=== PATIENT | male | born 1950 | race Caucasian/White ===

== ENCOUNTER → 2017-05-24 | Outpatient (CLI) | payer OTHER | LOC: FIMAGING 10:09 | PROVIDERS: ATTEND Internal Medicine | DX: Z13.6 Encounter for screening for cardiovascular disorders (principal) ==

== ENCOUNTER → 2017-07-20 | Outpatient (CLI) | payer OTHER, BC | LOC: BHFA 08:30 | PROVIDERS: ATTEND Internal Medicine Cardiovascular Disease | DX: I25.10 Atherosclerotic heart disease of native coronary artery without angina pectoris (principal) | CPT/HCPCS: 78452; 93017; A9500 ==

== ENCOUNTER 2017-07-21 07:34 | Inpatient (IN) | payer OTHER, BC ==
[2017-07-21] MEDS ORDERED: diphenhydrAMINE 25 MG CAP PO ONE (07:40)
[2017-07-21] MEDS ORDERED: FAMOTIDINE 20 MG TAB PO ONE (07:40)
[2017-07-21] MEDS ORDERED: NS 1,000 ML IV ONE (07:40)
[2017-07-21] MEDS ORDERED: DIAZEPAM 5 MG TAB PO ONE (07:40)
[2017-07-21] MEDS ORDERED: ASPIRIN EC 325 MG TAB PO ONE (07:40)
--- NOTE | 2017-07-21 07:58 | CPEKG ---
Heart Rate: 57 RR Interval: 1053 P-R Interval: 164 QRSD Interval: 88 QT Interval: 424 QTC Interval: 413 P [place]: 69 QRS [place]: -9 T Wave [place]: 37 EKG Severity - ABNORMAL ECG - EKG Impression: SINUS RHYTHM EKG Impression: PROBABLE POSTERIOR INFARCT Electronically Signed By: Lei Herrera 21-Jul-2017 16:07:37
[2017-07-21 08:13] LABS: PLATELET COUNT 183 10^3/uL (150-400)
[2017-07-21 08:24] LABS: INR 0.94 (0.83-1.16); PROTIME(PATIENT) 12.8 SEC (12.0-15.0)
[2017-07-21] MEDS ORDERED: LIDOCAINE 1% 300 MG/30 ML SDV ONE (09:13)
[2017-07-21] MEDS ORDERED: HEPARIN 10,000 UNIT/10 ML MDV ONE (09:13)
[2017-07-21] MEDS ORDERED: fentaNYL 100 MCG/2 ML INJ ONE ×2 (09:13→09:51)
[2017-07-21] MEDS ORDERED: VERAPAMIL 5 MG/2 ML VIAL ONE (09:13)
[2017-07-21] MEDS ORDERED: MIDAZOLAM 2 MG/2 ML VIAL ONE (09:13)
[2017-07-21] MEDS ORDERED: IOPAMIDOL (ISOVUE-370) 150 ML BTL IV ONE (09:14)
--- NOTE | 2017-07-21 09:30 | PDGENHP ---
History & Physical Chief Complaint: CAD chest pain and abnormal History of Present Illness: 67 year old with CAD and abnormal stress test with CCS Class III symptoms of angina...stress test is intermeidate risk. 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 allens test on right is normal with adequate size of radial artery and right radial approach is planned. Cardiorespiratory Assessment: Pt with angina and shortness of breath less SV exercise now with abnormal nuclear stress and known CAD... Needs cath risk and benefit carefully reviewed. Main risk is stroke heart attack...
--- NOTE | 2017-07-21 09:32 | PDPROPOC ---
Sedation Plan of Care Sedation Plan of Care: vital signs stable, mental status noted, patient educated of risks, benefits, alternatives, patient can tolerate sedation ASA Classification: ASA 3 Planned drugs: fentanyl, midazolam Mallampati Score: Class 3 Mallampati Reference Image: Patient passed 3-3-2 rule?: Yes
[2017-07-21] MEDS ORDERED: ATROPINE SULFATE 1 MG/10 ML SYR ONE (10:41)
--- NOTE | 2017-07-21 11:52 | CPIP ---
[f rep st] INVASIVE CARDIAC PROCEDURE DATE OF PROCEDURE: 07/21/2017 PROCEDURE PERFORMED: 1. Selective coronary geography. 2. Left heart catheterization. 3. Left ventriculogram. 4. Initial right radial approach was unsuccessful secondary to tortuosity of the radial artery on th e right side, so ultimately the procedure was performed with a 5-Bhutanese sheath from a right femoral a rtery approach. INDICATIONS/APPROPRIATE USE CRITERIA: The patient has an intermediate risk stress test with abnormal ST segments with exercise, as well as a perfusion deficit involving the anterior lateral wall, compr ising approximately 8% of the total myocardium. The patient has CCS class III symptoms of angina wit h chest discomfort with minimal exertion. PROCEDURE IN DETAIL: After informed consent was obtained and the n.p.o. status was confirmed, the re gion of the right wrist was cleaned, prepped, and draped in sterile fashion. A modified plethysmogra phy trace-assisted Erick test was performed, documenting dual arterial supply of the right hand. The patient underwent placement of a 5-Bhutanese sheath. Attempts to advance a JR4 catheter with a standar d J wire and then a J glide catheter were successful. Angiography documented significant tortuosity with a recurrent radial artery on the right side, and we therefore abandoned further attempts to adva nce the catheter past the tortuosity within the radial artery. Then, the right groin was cleaned, pr epped, and draped in sterile fashion. Approximately 5 cc of 1% lidocaine were utilized for local ane sthesia. A 5-Bhutanese sheath was placed using a micropuncture in modified Seldinger technique. The pa irasema then underwent the previously mentioned diagnostic procedure with use of JL4 and R4 curved vera nary catheters, as well as a 5-Bhutanese pigtail catheter. Standard wire exchange technique was utilize d for all catheter exchanges. The left main coronary lumen is approximately 8 mm in size and bifurcates into an LAD and circumflex system. Circumflex vessel is approximately 3.5 mm in size and has a 50% lesion in its mid course. T here is only 1 important obtuse marginal vessel posteriorly. The left main reveals disease with an a t least 30% lesion of the left main, as well as a 30% eccentric lesion of the ostial LAD. The 1st di agonal branch has a 70% ostial stenosis with serial blockage in that vessel and serves as a functiona l ramus vessel. The LAD thereafter has another 30% lesion with an aneurysmal segment proximal to a 2 nd diagonal take-off, which is a very tiny vessel (approximately 2 mm in size) with a 90% ostial sten osis and is not a candidate for stenting or bypass surgery. Shortly thereafter, a 3rd diagonal branc h is likely to give all of the subsequent lateral branches to the heart and is 100% occluded with arturo y weak penetration of dye into the ostium of that vessel. The LAD proper thereafter is diffusely dis eased with serial 70% and 80% stenoses. The distal vessel in its distal 3rd is a large caliber vesse l (approximately 3.5 mm in size) and appears to be a good candidate for a bypass. The right coronary artery is dominant and has a hidalgo's crook deformity at its takeoff from the ri ght coronary cusp. There is an 80% lesion proximally as well as another eccentric shelf-like lesion in the mid right coronary proximal to the acute marginal takeoff, which is also estimated at 80% to 8 5% stenosis. The distal vessel gives rise to a PDA vessel, which also has a lesion in its proximal s egment, which is estimated at 50%, and 2 nice posterior lateral ventricular branches. The patient underwent left heart catheterization demonstrating a measured left ventricular end-diasto lic pressure of 24, which I think is more accurately 19. The patient underwent left ventriculogram i n the ALBERT projection, demonstrating preserved and hypercontractile left ventricular systolic function ; estimated ejection fraction is 65%. There was evidence of mitral regurgitation on pressurized inje ction, which may be catheter-induced related to the pressurized injection. No salena prolapse was ashley ntified. No segmental wall motion abnormalities were identified on LV gram. Visualized portion of t he thoracic aorta reveals 3 sinuses of Valsalva, most consistent with a trileaflet aortic valve. The proximal aorta is generous in size but not frankly aneurysmal, and there is no evidence of salena dis section on the basis of the ventriculogram. SUMMARY OF FINDINGS: Severe cocopah vessel coronary disease as previously described with preserved ej ection fraction. The patient will require an echocardiogram to evaluate for valvular heart disease o nce he is able to roll onto his left side. The patient does need to have bypass surgery, which is re commended. Consultation had been obtained by Dr. Ezra Marin. I believe the patient would benefit f rom a SAUCEDO to the LAD, saphenous vein graft to the RCA PDA vessel, as well as saphenous vein graft to the 1st diagonal, vein graft to the circumflex OM posteriorly; and if a large diagonal branch is ashley ntified at the time of surgery, it may be a candidate for a 5th bypass to that region as well. I lucho pect a large diagonal is present coming off around the middle of the LAD proper given its angiographi c appearance; although, this was not seen with collateral circulation. /[id number]/MODL
[2017-07-21] MEDS ORDERED: ATROPINE SULFATE 1 MG/10 ML SYR IVP PRN (11:59)
[2017-07-21] MEDS ORDERED: ONDANSETRON 4 MG/2 ML VIAL IVP PRN (11:59)
[2017-07-21] MEDS ORDERED: OXYCODONE/APAP 5/325 TAB PO PRN (11:59)
[2017-07-21] MEDS ORDERED: NITROGLYCERIN 0.4 MG BTL SL PRN (11:59)
--- NOTE | 2017-07-21 16:20 | ECHO ---
[email or web address] [address] [address] Main: [phone] Fax: Transthoracic Echocardiogram Name: GERMAIN GAFFNEY MR#: [id number] Study Date: 07/21/2017 Study Time: 12:52 PM Date of : 1950 Age: 67 year(s) Height: 167.6 cm (66 in.) Weight: 79.38 kg (175 lb.) BSA: 1.89 m2 Gender: Male Examination: Echo Indication: Post Cath Image Quality: Contrast: Requested by: Mason Nichols BP: 111 mmHg/73 mmHg Heart Rate: Rhythm: Indication: Post Cath Procedure Staff Tax Manager: Dylan Ramos Reading Physician: Lei Herrera Requesting Provider: Conclusions: Normal size left ventricle. No LV hypertrophy. Normal global systolic LV function. EF is 62 %. Diastolic dysfunction is present. . The mitral valve is normal in appearance and function. There is no mitral valve regurgitation. The aortic valve is normal in appearance and function. Trivial aortic valve regurgitation. The tricuspid valve is normal in appearance and function. There is no pulmonic regurgitation seen. Measurements: Chambers Valvular Assessment AV/MV Valvular Assessment TV/PV Normal Normal Normal Name Value Range Name Value Range Name Value Range Ao Radha (MM): 3.3 cm (2.2 cm-3.7 AV Vmax: 1.17 m/s (1 m/s-1.7 PV Vmax: 0.85 m/s (0.6 m/s-0.9 cm) m/s) m/s) IVSd (2D): 0.9 cm (0.6 cm-1.1 AV maxP mmHg ( - ) PV PGmax: 3 mmHg ( - ) cm) LVOT Vmax: 0.92 m/s (0.7 m/s-1.1 LVDd (2D): 4.8 cm (4.2 cm-5.9 m/s) cm) AR (PHT): 773 ms ( - ) LVDs (2D): 3.2 cm (2.1 cm-4 MV E Vmax: 0.69 m/s ( - ) cm) MV A Vmax: 0.71 m/s ( - ) LVPWd (2D): 1.0 cm (0.6 cm-1 MV E/A: 0.97 ( - ) cm) LVEF (2D): 62 (>=54 %) Continued Measurements: Chambers Valvular Assessment AV/MV Patient: GERMAIN GAFFNEY Study Date: 07/21/2017 Page 1 of 2 12:52 PM Name Value Name Value LADs Lon.0 cm MV E/E' Septal: 16.50 LA Area: 14.9 cm2 MV E/E' Lateral: 13.10 LA Volume: 37 ml AR Vmax: 1.56 cm/s LA Volume Index: 19.6 ml/m2 Findings: Left Ventricle: Normal size left ventricle. No LV hypertrophy. Normal global systolic LV function. EF is 62 %. Diastolic dysfunction is present. . Right Ventricle: Normal size right ventricle. Left Atrium: The left atrium is normal in size. Right Atrium: The right atrium is normal in size. Mitral Valve: The mitral valve is normal in appearance and function. There is no mitral valve regurgitation. Aortic Valve: The aortic valve is tri-leaflet. The aortic valve is normal in appearance and function. Trivial aortic valve regurgitation. Tricuspid Valve: The tricuspid valve is normal in appearance and function. Pulmonic Valve: The pulmonic valve is normal in appearance and function. There is no pulmonic regurgitation seen. Aorta: The aorta is normal. Pericardium: No pericardial effusion. (No Signature Object) Patient: GERMAIN GAFFNEY Study Date: 07/21/2017 Page 2 of 2 12:52 PM [id number]
--- NOTE | 2017-07-21 19:13 | GCON ---
[f rep st] CONSULTATION DATE OF CONSULTATION: 07/21/2017 The patient is seen at the request of Dr. Nichols with the patient's permission. IMPRESSION: 1. Asymptomatic, silent ischemia with severe 3-vessel disease. 2. Moderate EtOH history. 3. Hypercholesterolemia. RECOMMENDATIONS: This gentleman should undergo coronary artery revascularization on this admission g iven his silent ischemia, lack of symptoms, and severe 3-vessel disease. Risks and complications wer e reviewed at length with the patient and his , including bleeding, infection, stroke, IA, and de ath, all around 1%. I advised him that I would use 2 internal mammary arteries as well as endoscopic ally harvested vein from his leg. Risk of transfusion requirements is around 4% and blood complicati ons were reviewed as well with the patient. 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 Had a calcium score 315 with calcificatio ns in the left main and RCA. Because of his hyperlipidemia, he was referred for stress testing, whic h was abnormal, and subsequent diagnostic cath revealed severe 3-vessel disease with left main equiva lent and normal LV function. Echo was pending. MEDICAL HISTORY: As stated. SURGERIES: Include dental surgery and LASIK eye surgery. ADMISSION MEDICATIONS: Alpha lipoic acid, aspirin, atorvastatin, Co Q10, and multivitamin. ALLERGIES: Denied. SOCIAL HISTORY: He is a nonsmoker. He drinks 1 or 2 beers at a time intermittently and often goes w eeks and months without any alcohol consumption. This has never been a problem for him. FAMILY HISTORY: Father had heart attack, age not documented. REVIEW OF SYSTEMS: At the present time he is entirely asymptomatic. He is comfortable sitting in be d, having recovered from his catheterization. PHYSICAL EXAMINATION: VITAL SIGNS: 132/70, pulse 70, respirations 14 and unlabored, O2 sat was 94% i n room air. HEENT: Normocephalic. PERRLA. EOMI. NECK: Without bruit, adenopathy, or thyromegaly . HEART: Rate regular without murmur. LUNGS: Clear. ABDOMEN: Soft, nontender. Bowel sounds are active. RECTAL/GENITAL: Deferred. EXTREMITIES: Pedal pulses 2+ and symmetrical. No edema. No v aricosities. Please see cath report for details. Echo is pending. /[id number]/MODL
[2017-07-21] MEDS ORDERED: CHLORHEXIDINE GLUC HIBICLENS 118 ML BTL TP SCH (21:00)
[2017-07-22] MEDS ORDERED: ADENOSINE 6 MG/2 ML VIAL ONE (06:35)
[2017-07-22] MEDS ORDERED: HEPARIN 10,000 UNIT/10 ML MDV ONE (06:35)
[2017-07-22] MEDS ORDERED: CALCIUM CHLORIDE 1 GM/10 ML INJ ONE (06:35)
[2017-07-22] MEDS ORDERED: DOPamine/DEXTROSE/250 ML BAG IV ONE (06:35)
[2017-07-22] MEDS ORDERED: NA BICARBONATE 50 MEQ/50 ML VIAL ONE (06:35)
[2017-07-22] MEDS ORDERED: ALBUMIN 5% 250 ML BOTTLE IV ONE ×2 (06:35→17:01)
[2017-07-22] MEDS ORDERED: CITRATE DEXTROSE SOLN 500 ML BAG ONE (06:35)
[2017-07-22] MEDS ORDERED: MILRINONE/DEXTROSE/100 ML BAG IV ONE (06:35)
[2017-07-22] MEDS ORDERED: PROTAMINE SULFATE 50 MG/5 ML VIAL IVP ONE ×2 (06:35→15:09)
[2017-07-22] MEDS ORDERED: niCARdipine/NACL/200 ML BAG IV ONE (06:35)
[2017-07-22] MEDS ORDERED: LIDOCAINE 2% 100 MG/5 ML SYR ONE (06:35)
[2017-07-22] MEDS ORDERED: AMIODARONE HCL 150 MG/3 ML VIAL ONE (06:35)
[2017-07-22] MEDS ORDERED: ceFAZolin 1 GM VIAL ONE (06:36)
[2017-07-22] MEDS ORDERED: MAGNESIUM SULFATE 1 GM/2 ML VIAL ONE (06:36)
[2017-07-22] MEDS ORDERED: methylPREDNISolone SOD SUCC 1 GM/8 ML VIAL ONE (06:36)
[2017-07-22] MEDS ORDERED: MANNITOL 25% 12.5 GM/50 ML VIAL IVP ONE (10:00)
[2017-07-22] MEDS ORDERED: VERAPAMIL 5 MG, NITROGLYCERIN 2.5 MG, HEPARIN 500 UNIT, SODIUM BICARBONATE 0.2 MEQ in L... MISC ONE (10:00)
[2017-07-22] MEDS ORDERED: PHENYLEPHRINE HCL 50 MG in NS 250 ML IV ONE (10:00)
[2017-07-22] MEDS ORDERED: ceFAZolin 2 GM/SWFI 2 GM/20 ML SYR IVP ONE (10:00)
[2017-07-22] MEDS ORDERED: INSULIN REGULAR HUMAN 100 UNIT in NS 100 ML IV ONE (10:00)
[2017-07-22] MEDS ORDERED: SODIUM BICARBONATE 20 MEQ, LIDOCAINE 1% 10 ML in NORMOSOL-R 1,000 ML MISC ONE (10:00)
[2017-07-22] MEDS ORDERED: TRANEXAMIC ACID 1,000 MG in NS 100 ML IV ONE (10:00)
[2017-07-22] MEDS ORDERED: NOREPINEPHRINE BITARTRATE 16 MG in NS 250 ML IV ONE (10:00)
[2017-07-22] MEDS ORDERED: MUPIROCIN 2% 22 GM OINT NS ONE (10:00)
[2017-07-22] MEDS ORDERED: niCARdipine/NACL 200 ML IV SCH (10:00)
[2017-07-22] MEDS ORDERED: CITRATE DEXTROSE SOLN 500 ML BAG MISC ONE (10:00)
[2017-07-22] MEDS ORDERED: ceFAZolin 2 GM/SWFI 20 ML SYR IVP ONE (12:07)
[2017-07-22] MEDS ORDERED: LR 1,000 ML IV ONE (12:08)
[2017-07-22] MEDS ORDERED: MUPIROCIN 2% 22 GM OINT ONE (13:02)
[2017-07-22] MEDS ORDERED: MIDAZOLAM 2 MG/2 ML VIAL IVP ONE (13:13)
--- NOTE | 2017-07-22 13:16 | ASMTCASEMG ---
Living Arrangements What is your living Answers: With Spouse arrangement? Who do you live with? Type Of Residence What kind of residence do Answers: House you live in? Discharge Plan Comments Coordination Status Comments Notes: Pt is a 67 y/o man admitted for abnormal nuclear stress test. Pt is scheduled to have an open heart surgery today. Needs are TBD at this time. CM will post post surgery. Plan: TBD Date Signed: 07/22/2017 01:16 PM Electronically Signed By:KYUNG Burger
[2017-07-22] MEDS ORDERED: LIDOCAINE 2% 5 ML SDV ONE (13:25)
[2017-07-22] MEDS ORDERED: PROPOFOL 200 MG/20 ML VIAL ONE (13:25)
[2017-07-22] MEDS ORDERED: ROCURONIUM 100 MG/10 ML VIAL ONE (13:25)
[2017-07-22] MEDS ORDERED: fentaNYL 250 MCG/5 ML INJ ONE ×2 (13:25)
--- NOTE | 2017-07-22 13:26 | PDANEPAE ---
ANE History of Present Illness cab ANE Past Medical History - Cardiovascular History Hx Hypertension: Yes Hx Arrhythmias: No Hx Chest Pain: No Hx Coronary Artery / Peripheral Vascular Disease: Yes Hx CHF / Valvular Disease: No Hx Palpitations: No - Pulmonary History Hx COPD: No Hx Asthma/Reactive Airway Disease: No Hx Recent Upper Respiratory Infection: No Hx Oxygen in Use at Home: No Hx Sleep Apnea: No Sleep Apnea Screening Result - Last Documented: Positive - Neurologic History Hx Cerebrovascular Accident: No Hx Seizures: No Hx Dementia: No - Endocrine History Hx Diabetes: No Hypothyroid: No Hyperthyroid: No - Renal History Hx Renal Disorders: No - Liver History Hx Hepatic Disorders: No - Chronic Pain History Chronic Pain: No ANE Review of Systems Review of Systems: ANE Patient History - Allergies Allergies/Adverse Reactions: No Known Allergies Allergy (Unverified 01/07/10 11:32) - Home Medications Home Medications: Aspirin [Aspirin 325 mg (*)] 325 mg PO DAILY@15 07/21/17 [Last Taken 07/20/17] Atorvastatin Calcium [Lipitor 10 mg (*)] 10 mg PO HS 07/21/17 [Last Taken ] Fluorouracil [Efudex] 1 arslan TP DAILY 07/21/17 [Last Taken 07/19/17] Herbals/Supplements -Info Only 1 ea PO DAILY 07/21/17 [Last Taken Unknown] Multivitamins [Multivitamin (*)] 1 each PO DAILY 07/21/17 [Last Taken 07/19/17] - NPO status NPO Status: no food or drink >8 hours NPO Since - Liquids (Date): 07/22/17 NPO Since - Liquids (Time): 00:01 NPO Since - Solids (Date): 07/22/17 NPO Since - Solids (Time): 00:01 - Anes Hx Anes Hx: no prior problems - Smoking Hx Smoking Status: Former smoker ANE Labs/Vital Signs - Labs Result Diagrams: 07/21/17 07:56 07/22/17 03:51 - Vital Signs Blood Pressure: 145/90 Heart Rate: 63 Respiratory Rate: 18 O2 Sat (%): 93 Height: 170 cm Weight: 79.5 kg ANE Physical Exam - Airway Mallampati Score: Class 2 Mouth exam: normal dental/mouth exam - Pulmonary Pulmonary: no respiratory distress - Cardiovascular Cardiovascular: regular rate and rhythym - ASA Status ASA Status: III ANE Anesthesia Plan Anesthesia Plan: general endotracheal anesthesia Lines/Monitors: arterial line, central line, NETTE
[2017-07-22] MEDS ORDERED: VERAPAMIL 5 MG/2 ML VIAL ONE (13:57)
[2017-07-22] MEDS ORDERED: PAPAVERINE HCL 60 MG/2 ML SDV ONE (13:58)
[2017-07-22] MEDS ORDERED: epHEDrine SULFATE 10 MG/ML SYR ONE ×2 (14:00→14:22)
[2017-07-22] MEDS ORDERED: hydrALAZINE 20 MG/ML VIAL ONE (14:16)
[2017-07-22] MEDS ORDERED: GLYCOPYRROLATE 0.2 MG/1 ML VIAL ONE (14:20)
[2017-07-22] MEDS ORDERED: MINERAL OIL 10 ML VIAL ONE (15:57)
[2017-07-22] MEDS ORDERED: SUGAMMADEX SODIUM 200 MG/2 ML VIAL IVP ONE (16:25)
[2017-07-22] MEDS ORDERED: DEXMEDETOMIDINE/NS 4MCG/ML 50 ML BTL IV ONE (16:29)
[2017-07-22] MEDS ORDERED: DEXMEDETOMIDINE IN 0.9 % NACL 50 ML IV SCH (17:00)
[2017-07-22] MEDS ORDERED: MAGNESIUM SULF 2 GM/WATER 50 ML BAG IV ONE (17:01)
[2017-07-22] MEDS ORDERED: ONDANSETRON DISINTEGRATING 4 MG TAB PO PRN (17:05)
[2017-07-22] MEDS ORDERED: MAGNESIUM SULF 2 GM/WATER 50 ML IV ONE (17:05)
[2017-07-22] MEDS ORDERED: PANTOPRAZOLE SODIUM 40 MG VIAL IVP ONE (17:05)
[2017-07-22] MEDS ORDERED: POLYETHYLENE GLYCOL 3350 17 GM PKT PO PRN (17:05)
[2017-07-22] MEDS ORDERED: MEPERIDINE 25 MG/ML SYR IVP PRN (17:05)
[2017-07-22] MEDS ORDERED: CEPACOL LOZENGE PO PRN (17:05)
[2017-07-22] MEDS ORDERED: SODIUM CL NASAL 45 ML BTL EACHNARE PRN (17:05)
[2017-07-22] MEDS ORDERED: POTASSIUM Cl (KCl) 50 ML IV PRN (17:05)
[2017-07-22] MEDS ORDERED: ALBUMIN 5% 250 ML IV PRN (17:05)
[2017-07-22] MEDS ORDERED: D50W 25 GM/50 ML SYR IVP PRN (17:05)
[2017-07-22] MEDS ORDERED: BISACODYL 10 MG SUPP PR PRN (17:05)
[2017-07-22] MEDS ORDERED: ONDANSETRON 4 MG/2 ML VIAL IVP PRN (17:05)
[2017-07-22] MEDS ORDERED: LACTULOSE 20 GM/30 ML UDCUP PO PRN (17:05)
[2017-07-22] MEDS ORDERED: METOCLOPRAMIDE 10 MG/2 ML VIAL IVP PRN (17:05)
[2017-07-22] MEDS ORDERED: ACETAMINOPHEN 650 MG SUPP PR PRN (17:05)
[2017-07-22] MEDS ORDERED: MAGNESIUM HYDROXIDE 30 ML UDCUP PO PRN (17:05)
[2017-07-22] MEDS ORDERED: fentaNYL 50 MCG PATCH TD SCH (17:15)
[2017-07-22] MEDS ORDERED: NS 1,000 ML IV SCH (17:15)
[2017-07-22] MEDS ORDERED: INSULIN REGULAR HUMAN 100 UNIT in NS 100 ML IV SCH (17:30)
[2017-07-22] MEDS ORDERED: NALOXONE HCL 0.4 MG/ML INJ IVP PRN (17:43)
--- NOTE | 2017-07-22 17:44 | POSTANESTH ---
Post Anesthetic Evaluation Cardiovascular Status: Tx Hyper/Hypo-tension Respiratory Status: Normal, Stable, Requires Airway Assist Level of Consciousness/Mental Status: Other, See Comment (sedated on precedex) Pain Control: Adequate, Prn Tx Ordered Nausea/Vomiting Control: Adequate, Prn Tx Ordered Complications Possibly Related to Anesthesia: None Noted
[2017-07-22] MEDS ORDERED: KETOROLAC 30 MG/1 ML SDV ONE (17:47)
[2017-07-22] MEDS ORDERED: DEXMEDETOMIDINE/NS 4MCG/ML 100 ML BTL IV ONE (18:10)
--- NOTE | 2017-07-22 18:27 | CPEKG ---
Heart Rate: 60 RR Interval: 1000 P-R Interval: 188 QRSD Interval: 104 QT Interval: 476 QTC Interval: 476 P [place]: 83 QRS [place]: 3 T Wave [place]: 34 EKG Severity - BORDERLINE ECG - EKG Impression: SINUS RHYTHM EKG Impression: BORDERLINE PROLONGED QT INTERVAL Electronically Signed By: Juan M Barrett 23-Jul-2017 12:05:30
[2017-07-22] MEDS ORDERED: KETOROLAC 30 MG/1 ML SDV IVP ONE (18:30)
[2017-07-22] MEDS ORDERED: ALBUMIN 5% 250 ML IV ONE ×3 (18:30)
[2017-07-22] MEDS ORDERED: NALOXONE HCL 0.4 MG/ML INJ ONE (19:33)
[2017-07-22] MEDS: fentaNYL 100 MCG/2 ML INJ IVP PRN ×3 (21:12→23:20)
[2017-07-22] MEDS ORDERED: PANTOPRAZOLE SODIUM 40 MG VIAL ONE (22:07)
[2017-07-22] MEDS: ceFAZolin 2 GM/DEXTROSE 100 ML IV SCH (22:10)
[2017-07-22] MEDS: MUPIROCIN 2% 22 GM OINT NS SCH (22:11)
[2017-07-23] MEDS: fentaNYL 100 MCG/2 ML INJ IVP PRN ×5 (00:25→04:56)
[2017-07-23] MEDS: HYDROCODONE/APAP 5/325 TAB PO PRN ×3 (04:46→21:53)
[2017-07-23] MEDS: ceFAZolin 2 GM/DEXTROSE 100 ML IV SCH ×3 (06:52→21:39)
[2017-07-23] MEDS: HEPARIN 5,000 UNIT/0.5 ML SYR SC SCH ×3 (06:53→21:46)
[2017-07-23] MEDS ORDERED: HYDROmorphONE/DILAUDID 6 MG/30 ML PCA IV PRN (07:09)
[2017-07-23 07:13] LABS: PLATELET COUNT 153 10^3/uL (150-400)
--- NOTE | 2017-07-23 07:54 | SOAPPROG ---
SOAP Progress Note Assessment/Plan: Assessment: POD#1 (SAUCEDO-LAD, CHUCK-PDA, SV-Dx, SV-OM), EVH LLE, prophylactic AtriClip LLAA Sx CAD with preserved LV systolic fx - s/p CABG with 2 arterial grafts. Extubated in the OR. Hemodynamically stable early postop course. No vasoactive support, tachydysrythmias, backup pacing or significant fluid overload. Secondary prevention with ASA, BB as allowed by BP, and statin when eating well. Pain control with multimodal analgesia. Anticipate decr narc needs once chest tubes out. Acute expected blood loss anemia - Stable. No transfusions. VTE prophylaxis with SQ hep. Plan: Routine POD#1 orders re lines, wires, orals and mobility. Keep CT to suction at rest. Probable tx to PCU later today. 07/23/17 07:51 Subjective: Tired. Not much sleep d/t pain. A little woozy OOB. Now comfortable sitting in chair. No appetite. Sips/chips well tolerated. Objective: Vital Signs Temp Pulse Resp BP Pulse Ox 37.6 C 78 14 100/50 L 96 07/23/17 05:00 07/23/17 07:00 07/23/17 07:00 07/23/17 07:00 07/23/17 07:00 Laboratory Results 07/23/17 07:00 07/22/17 07/23/17 07/24/17 05:59 05:59 05:59 Intake Total 1304 Output Total 1780 Balance -476 PT 12.8 SEC (12.0-15.0) 07/21/17 07:56 INR 0.94 (0.83-1.16) 07/21/17 07:56 HR and BP controlled. Stable sats on 4 Lpm O2. Balanced I/Os. CTOP thinning. CXR-> No PTX, no pulm vasc congestion, bibasilar atelectasis L>R. Labs as expected. Physical Exam - Physical Exam General Appearance: no apparent distress (nodding off when not actively engaged) Respiratory: decreased breath sounds (bases), other (Blakes x 3 y-d to pleurovac , serosang drainage, +tidal, small air leak w cough) Cardiac/Chest: regular rate, rhythm, other (Sternotomy and LLE venotomy CDI. Vwires intact.) Abdomen: non-tender, other (hypoactive BS) Skin: warm/dry Extremities: swelling (trace) ICD10 Worksheet Patient Problems: Problems Problem Status Onset Acute blood loss anemia Acute CAD in [place] artery Acute S/P CABG x 4 Acute ~07/22/17
[2017-07-23] MEDS ORDERED: PANTOPRAZOLE SODIUM 40 MG VIAL IVP SCH (09:00)
[2017-07-23] MEDS ORDERED: ASPIRIN 81 MG CHEWABLE TAB TUBE PRN (09:00)
[2017-07-23] MEDS: ASPIRIN 81 MG CHEWABLE TAB PO SCH (09:24)
[2017-07-23] MEDS: MUPIROCIN 2% 22 GM OINT NS SCH ×2 (09:25→21:51)
--- NOTE | 2017-07-23 14:38 | GHP ---
[f rep st] HISTORY AND PHYSICAL DATE OF ADMISSION: 07/21/2017 REFERRING PHYSICIAN: Ezra Marin DO PULMONARY/CRITICAL CARE CONSULTATION REASON FOR REFERRAL: Evaluation and management of anemia and hyperglycemia. HISTORY: The patient is a 67-year-old male with a history of hypercholesterolemia and a strong famil y history of coronary artery disease. He had risk stratification which led to a coronary angiogram, which demonstrated severe 3-vessel coronary artery disease and preserved LV function. He was referre d to Dr. Marin for coronary artery bypass grafting, which was performed today. The patient had a 4-v essel bypass. The intraoperative course was unremarkable. He received no blood and is on no pressor s. He was extubated in the operating room. PAST MEDICAL HISTORY: 1. Elevated PSA. 2. Hypercholesterolemia. MEDICATIONS AT THE TIME OF ADMISSION: Include Lipitor, aspirin, and fluorouracil cream. ALLERGIES: None. SOCIAL HISTORY: The patient is a nonsmoker. He drinks socially. 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 FAMILY HISTORY: Positive for coronary artery disease. REVIEW OF SYSTEMS: Unobtainable. PHYSICAL EXAMINATION: GENERAL: The patient is breathing spontaneously but is quite sedated postoper atively. He is moving all of his extremities. He is not answering questions and only intermittently follows commands. VITAL SIGNS: Blood pressure is 89/48, with a heart rate of 63. He is afebrile. Oxygen saturations are 100% on 10 L of supplemental oxygen. HEENT: Normocephalic and atraumatic. No icterus. NECK: No JVD. Trachea is midline. CHEST: Clear to auscultation. CARDIAC: Regular r ate and rhythm without murmur. He has midline sternotomy wound and chest tubes. No edema. ABDOMEN: Soft, nontender. Bowel sounds are present. EXTREMITIES: No clubbing or cyanosis. NEURO: He is minimally responsive, following commands but not answering questions. He is able to move all extremi ties. LABORATORY: Chemistry panel is unremarkable. Glucose is 122. Hemoglobin is 11.9, down from 15.5 pr eoperatively. Platelet count is 147. A chest x-ray shows no pneumothorax, with some bibasilar atele ctasis. Images reviewed by me. ASSESSMENT: 1. Coronary artery disease status post coronary artery bypass grafting. The patient's intraoperativ e course was unremarkable. 2. Anemia. This is likely due to an intraoperative blood loss and volume expansion postoperatively. The patient is currently mildly hypotensive but otherwise is stable. There is minimal active blood loss from the chest tubes. 3. Hyperglycemia. This is mild. The patient has no prior history of diabetes. 4. Hypoxemia. The patient is requiring supplemental oxygen in order to maintain oxygen saturations. This is likely due to atelectasis. RECOMMENDATIONS: 1. Follow hemoglobin. 2. Follow blood sugars closely. Insulin will be started if needed. 3. Continued to monitor respiratory status in the ICU. I anticipate that as he wakes up, his oxygen needs will decrease. /[id number]/MODL
[2017-07-23] MEDS: ACETAMINOPHEN 325 MG TAB PO PRN (14:53)
--- NOTE | 2017-07-23 14:54 | PDINTPN ---
[employer] Progress Note Assessment/Plan: Assessment: S/P CABG: Recovering well post-op. Anemia: Slightly lower, but no signs of significant bleeding, hypovolemia Hyperglycemia: Mild, not requiring insulin Plan: OK to transfer to PCU. Follow H/H, glucose. 07/23/17 14:54 Subjective: Had pain overnight, now improved. Poor appetite. Objective: Vital Signs Temp Pulse Resp BP Pulse Ox 37.1 C 79 18 121/55 H 92 07/23/17 14:49 07/23/17 14:49 07/23/17 14:49 07/23/17 14:49 07/23/17 14:49 Laboratory Results 07/23/17 07:00 07/23/17 07:00 07/22/17 07/23/17 07/24/17 05:59 05:59 05:59 Intake Total 1304 636.6 Output Total 1780 490 Balance -476 146.6 PT 12.8 SEC (12.0-15.0) 07/21/17 07:56 INR 0.94 (0.83-1.16) 07/21/17 07:56 Laboratory Tests 07/23/17 07/23/17 09:05 10:49 POC Hgb 12.2 L POC Glucose 122 H 134 H Physical Exam - Physical Exam General Appearance: no apparent distress EENT: normal ENT inspection Neck: normal inspection Respiratory: lungs clear, normal breath sounds Cardiac/Chest: regular rate, rhythm, No edema Abdomen: non-tender, soft Skin: normal color, warm/dry Extremities: normal inspection Neuro/Psych: alert, normal mood/affect, oriented x 3, No motor weakness ICD10 Worksheet Patient Problems: Problems Problem Status Onset Acute blood loss anemia Acute CAD in [place] artery Acute S/P CABG x 4 Acute ~07/22/17
[2017-07-24] MEDS: HYDROCODONE/APAP 5/325 TAB PO PRN ×5 (04:53→23:44)
[2017-07-24 05:10] LABS: PLATELET COUNT 160 10^3/uL (150-400)
[2017-07-24] MEDS: ceFAZolin 2 GM/DEXTROSE 100 ML IV SCH (06:14)
[2017-07-24] MEDS: HEPARIN 5,000 UNIT/0.5 ML SYR SC SCH ×3 (06:14→23:40)
--- NOTE | 2017-07-24 08:35 | SOAPPROG ---
SOAP Progress Note Assessment/Plan: Assessment: POD#2 (SAUCEDO-LAD, CHUCK-PDA, SV-Dx, SV-OM), EVH LLE, prophylactic AtriClip LLAA Sx CAD with preserved LV systolic fx - s/p CABG with 2 arterial grafts. Extubated in the OR. Hemodynamically stable early postop course. No vasoactive support, tachydysrhythmias, backup pacing or significant fluid overload. Autodiuresing adequately. Secondary prevention with ASA, statin, and BB as allowed by BP. Pain control with multimodal analgesia. Anticipate decr narc needs once chest tubes out. Acute expected blood loss anemia - Stable. No transfusions. VTE prophylaxis with SQ hep. Plan: Start metoprolol 12.5 mg BID. Convert blakes to bulb suction. Inc activity and pulm toilet. Dispo - Anticipate home in 2 days. 07/24/17 08:34 Subjective: Feeling better. Improved pain control. Light activity well tolerated. No acute concerns. Objective: Vital Signs Temp Pulse Resp BP Pulse Ox 36.9 C 78 12 115/62 92 07/24/17 07:41 07/24/17 07:41 07/24/17 07:41 07/24/17 07:41 07/24/17 07:41 Laboratory Results 07/24/17 04:45 07/24/17 04:45 07/23/17 07/24/17 07/25/17 05:59 05:59 05:59 Intake Total 1304 1636.6 Output Total 1780 1335 Balance -476 301.6 PT 12.8 SEC (12.0-15.0) 07/21/17 07:56 INR 0.94 (0.83-1.16) 07/21/17 07:56 Stable HR, rhythm and BP. Suppl O2 req down to 2 lpm. Adequate fluid balance. Within 2 kg of admit wt. Air leak resolved. CXR-> hypovent, small rt pl eff with tube in good position, mild LLL atelectasis. Labs ok. Physical Exam - Physical Exam General Appearance: alert, no apparent distress Respiratory: crackles (coarse, tube noise), other (blakes x 3 y-d to pleurovac, +tidal, no air leak with cough. Blakes stripped and changed to bulb suction.) Cardiac/Chest: regular rate, rhythm, friction rub, other (Sternotomy and LLE venotomy CDI. Vwires intact.) Abdomen: non-tender, soft Skin: warm/dry Extremities: other (no visible edema) ICD10 Worksheet Patient Problems: Problems Problem Status Onset Acute blood loss anemia Acute CAD in [place] artery Acute S/P CABG x 4 Acute ~07/22/17
[2017-07-24] MEDS: MULTIVITAMINS 1 EACH TAB PO SCH (08:55)
[2017-07-24] MEDS: PANTOPRAZOLE SODIUM 40 MG TAB PO SCH (08:55)
[2017-07-24] MEDS: ASPIRIN 81 MG CHEWABLE TAB PO SCH (08:55)
[2017-07-24] MEDS: MUPIROCIN 2% 22 GM OINT NS SCH (10:38)
--- NOTE | 2017-07-24 13:17 | ASMTCMCOM ---
CM Note CM Note Notes: Reviewed chart regarding discharge plan, pt's progress. Per MD notes, pt POD #2 s/p CABG, likely home in 2 days. OT recommends no needs, home. PT recommends home w/ a 4-wheel walker. Anticipate pt will discharge home independently w/ family support when medically stable. CM will cont to follow for any potential needs. Current Discharge Plan: Home independently Date Signed: 07/24/2017 01:17 PM Electronically Signed By:Terri Hawley RN
[2017-07-24] MEDS: SENNOSIDES/DOCUSATE SODIUM TAB PO SCH (20:20)
[2017-07-24] MEDS: METOPROLOL TARTRATE 25 MG TAB PO SCH (20:22)
[2017-07-24] MEDS ORDERED: AMIODARONE HCL 100 ML IV ONE (20:46)
[2017-07-25] MEDS: ACETAMINOPHEN 325 MG TAB PO PRN ×2 (03:37→12:07)
[2017-07-25] MEDS: HEPARIN 5,000 UNIT/0.5 ML SYR SC SCH (06:05)
--- NOTE | 2017-07-25 06:29 | SOAPPROG ---
SOAP Progress Note Assessment/Plan: POD#3 (SAUCEDO-LAD, CHUCK-PDA, SV-Dx, SV-OM), EVH LLE, prophylactic AtriClip LLAA Sx CAD with preserved LV systolic fx - s/p CABG with 2 arterial grafts. Extubated in the OR. Secondary prevention with ASA, statin, and BB as allowed by BP. Acute expected blood loss anemia - Stable. No transfusions. VTE prophylaxis with Eliquis/SCDs. Post-op paroxysmal atrial fibrillation - Uptitrate BB as tolerated. Amiodarone gtt ordered. Thromboprophylaxis with Eliquis. Subjective: Feeling better this morning. Denies CP/SOB. Ambulates without difficulty. Objective: Vital Signs Temp Pulse Resp BP Pulse Ox 36.6 C 96 18 131/73 H 93 07/25/17 04:00 07/25/17 04:00 07/25/17 04:00 07/25/17 04:00 07/25/17 04:00 Laboratory Results 07/24/17 04:45 07/25/17 03:30 07/24/17 07/25/17 07/26/17 05:59 05:59 05:59 Intake Total 1636.6 1060 Output Total 1335 915 90 Balance 301.6 145 -90 PT 12.8 SEC (12.0-15.0) 07/21/17 07:56 INR 0.94 (0.83-1.16) 07/21/17 07:56 ICD10 Worksheet Patient Problems: Problems Problem Status Onset Acute blood loss anemia Acute Atrial flutter Acute CAD in [place] artery Acute S/P CABG x 4 Acute ~07/22/17
[2017-07-25] MEDS ORDERED: AMIODARONE HCL 200 ML IV ONE (07:17)
--- NOTE | 2017-07-25 07:58 | CPEKG ---
Heart Rate: 142 RR Interval: 423 QRSD Interval: 78 QT Interval: 300 QTC Interval: 461 QRS [place]: -30 T Wave [place]: 0 EKG Severity - ABNORMAL ECG - EKG Impression: ATRIAL FLUTTER WITH 2:1 AV BLOCK EKG Impression: LEFT AXIS DEVIATION EKG Impression: BORDERLINE T ABNORMALITIES, INFERIOR LEADS Electronically Signed By: Herminio Stewart 25-Jul-2017 08:42:21
[2017-07-25] MEDS: APIXABAN 5 MG TAB PO SCH ×2 (08:13→22:14)
[2017-07-25] MEDS: ASPIRIN 81 MG CHEWABLE TAB PO SCH (08:13)
[2017-07-25] MEDS: SENNOSIDES/DOCUSATE SODIUM TAB PO SCH ×2 (08:13→22:13)
[2017-07-25] MEDS: PANTOPRAZOLE SODIUM 40 MG TAB PO SCH (08:13)
[2017-07-25] MEDS: METOPROLOL TARTRATE 25 MG TAB PO SCH ×2 (08:13→22:14)
[2017-07-25] MEDS: MULTIVITAMINS 1 EACH TAB PO SCH (08:13)
[2017-07-25] MEDS ORDERED: AMIODARONE HCL 540 MG in D5W 300 ML IV ONE (14:15)
[2017-07-25] MEDS: HYDROCODONE/APAP 5/325 TAB PO PRN ×2 (17:54→22:13)
[2017-07-25 20:32] VITALS: RESP 18
[2017-07-25] MEDS ORDERED: ATORVASTATIN CALCIUM 10 MG TAB PO SCH (21:00)
--- NOTE | 2017-07-26 07:54 | SOAPPROG ---
SOAP Progress Note Assessment/Plan: Assessment: POD#4 (SAUCEDO-LAD, CHUCK-PDA, SV-Dx, SV-OM), EVH LLE, prophylactic AtriClip LLAA Sx CAD with preserved LV systolic fx - s/p CABG with 2 arterial grafts. Extubated in the OR. Hemodynamically stable early postop course. Adequate autodiuresis. Secondary prevention with ASA, BB, and statin. Postop paroxysmal AF/flutter - Converting to SR on amio. Antithrombotic prophylaxis with Eliquis. Acute expected blood loss anemia - Stable. No transfusions. VTE prophylaxis with SQ hep. Plan: Inc metoprolol tartrate to 25 mg BID. Ok for discharge this afternoon. Instructions re diet, meds, activity, f/u and wound care to be reviewed in presence of . 07/26/17 07:51 Subjective: Feels well. No acute concerns. Ready for home today. Objective: Vital Signs Temp Pulse Resp BP Pulse Ox 36.8 C 71 18 123/75 H 94 07/26/17 04:00 07/26/17 04:00 07/26/17 04:00 07/26/17 04:00 07/26/17 04:00 Laboratory Results 07/24/17 04:45 07/25/17 03:30 07/25/17 07/26/17 07/27/17 05:59 05:59 05:59 Intake Total 1060 750 Output Total 915 1090 Balance 145 -340 PT 12.8 SEC (12.0-15.0) 07/21/17 07:56 INR 0.94 (0.83-1.16) 07/21/17 07:56 Holding SR. SBPs generally > 110. Nearly off O2. Within 1 kg of admit wt. Physical Exam - Physical Exam General Appearance: alert, no apparent distress Respiratory: lungs clear Cardiac/Chest: regular rate, rhythm, other (Sternum grossly stable. Sternotomy and LLE venotomy CDI. Chest tube dressing CDI.) Abdomen: non-tender, soft Skin: warm/dry Extremities: other (no visible edema) ICD10 Worksheet Patient Problems: Problems Problem Status Onset Acute blood loss anemia Acute Atrial flutter Acute CAD in [place] artery Acute S/P CABG x 4 Acute ~07/22/17
[2017-07-26 08:01] VITALS: O2SAT 92
[2017-07-26 08:18] VITALS: PULSE 78
[2017-07-26] MEDS: SENNOSIDES/DOCUSATE SODIUM TAB PO SCH (08:40)
[2017-07-26] MEDS ORDERED: AMIODARONE HCL 200 MG TAB PO SCH (09:00)
[2017-07-26] MEDS ORDERED: METOPROLOL TARTRATE 25 MG TAB PO SCH (09:15)
[2017-07-26] MEDS: METOPROLOL TARTRATE 25 MG TAB PO SCH (09:22)
[2017-07-26] MEDS: MULTIVITAMINS 1 EACH TAB PO SCH (09:33)
[2017-07-26] MEDS: APIXABAN 5 MG TAB PO SCH (09:33)
[2017-07-26] MEDS: ASPIRIN 81 MG CHEWABLE TAB PO SCH (09:33)
[2017-07-26] MEDS: PANTOPRAZOLE SODIUM 40 MG TAB PO SCH (09:33)
[2017-07-26 12:19] VITALS: BP 110/70; TEMP 98.3
--- NOTE | 2017-07-26 13:13 | PDDCSUM ---
Discharge Summary Discharge Summary: ADMISSION DATE: 07/21/17 DISCHARGE DATE: 07/26/17 DISCHARGE DX: 1. Severe coronary atherosclerotic disease 2. Acute blood loss anemia 3. Paroxysmal atrial fibrillation PROCEDURES 07/22/17, Ezra Marin: 1. CABGx4 (SAUCEDO-LAD, CHUCK-PDA, SVG-Dx, SV-OM), AtriClip LLA HOSPITAL COURSE BY PROBLEM LIST 1. CAD - s/p CABGx4. Beta marzena, aspirin, and statin prescribed for secondary prevention. 2. Acute blood loss anemia - stable without transfusions. 3. Paroxysmal atrial fibrillation - conversion to SR with amiodarone and metoprolol. Thromboprophylaxis with Eliquis. CONDITION Good DISPOSITION Home ACTIVITY Pt was instructed on sternal precautions, activity limitations, and which problems to call [facility] with. Please see Discharge Plan in chart for specifics. DISCHARGE MEDICATIONS Continue: 1. Atorvastatin Calcium [Lipitor 10 mg (*)] 10 mg PO HS 2. Fluorouracil [Efudex] 1 arslan TP DAILY 3. Herbals/Supplements -Info Only 1 ea PO DAILY 4. Multivitamins [Multivitamin (*)] 1 each PO DAILY New: 1. Acetaminophen [Tylenol 325mg (*)] 325 - 650 mg PO Q4HRS PRN 2. Amiodarone HCl [Pacerone (*)] 200 mg PO BID 3. Apixaban [Eliquis] 5 mg PO BID 4. Aspirin [Aspirin 81mg (*)] 81 mg PO DAILY 5. Hydrocodone/APAP 5/325 [Frederic 5/325 (*)] 1 - 2 tab PO Q4HRS PRN 6. Metoprolol Tartrate [Lopressor 25 mg (*)] 25 mg PO BID Stop: 1. Aspirin 325 mg PENDING STUDIES/LABS 1. CXR prior to follow-up F/U APPOINTMENTS 1. Ezra Marin - 08/09/17, 10:30 AM
--- NOTE | 2017-07-26 17:32 | ASDISCHSUM ---
Discharge Information Plan Status:Home with No Needs Medically Cleared to Leave:07/25/2017 Discharge Date:07/26/2017 03:01 PM CM D/C Disposition:Home, Routine, Self-Care ADT D/C Disposition:Home, Routine, Self-Care Projected Discharge Date:07/26/2017 03:01 PM Transportation at D/C:Family Discharge Delay Reason: Follow-Up Date:07/26/2017 03:01 PM Discharge Slot: Final Diagnosis: Placement Information Patient Contact Information Contact Name:CHELSEY Relationship: Address:[address] City:[place] Alternate Phone: State/Zip Code:[place] [address] Email: Financial Information Financial Class: Primary Plan Desc:MEDICARE INPATIENT Primary Plan Number:[id number] Secondary Plan Desc:[employer] [facility] Secondary Plan Number:[id number] Assessment Information [facility] Initial CM Assessment Living Arrangements What is your living Answers: With Spouse arrangement? Who do you live with? Type Of Residence What kind of residence do Answers: House you live in? Discharge Plan Comments Coordination Status Comments Notes: Pt is a 67 y/o man admitted for abnormal nuclear stress test. Pt is scheduled to have an open heart surgery today. Needs are TBD at this time. CM will post post surgery. Plan: TBD Date Signed: 07/22/2017 01:16 PM Electronically Signed By:KYUNG Burger [facility] CM Progress Note CM Note CM Note Notes: Reviewed chart regarding discharge plan, pt's progress. Per MD notes, pt POD #2 s/p CABG, likely home in 2 days. OT recommends no needs, home. PT recommends home w/ a 4-wheel walker. Anticipate pt will discharge home independently w/ family support when medically stable. CM will cont to follow for any potential needs. Current Discharge Plan: Home independently Date Signed: 07/24/2017 01:17 PM Electronically Signed By:Terri Hawley RN Intervention Information Intervention Type:*IM-Signed Date of Service:07/26/2017 02:11 PM Patient Type:Inpatient Staff Member:Gisselle Callaway Hours: Discipline: Severity: Comment:
== END 2017-07-26 15:01 | disposition home or self-care (01) | DRG 234 ==
LOC: FCATH 07:34 → F2W 11:59 → INTOOBSV 11:59 → OBSVTOIN 11:59 → F2W 17:25 → F2N 07-22 11:46 → F2W 07-23 14:50
PROVIDERS: ADMIT Thoracic Surgery (Cardiothoracic Vascular Surgery); ATTEND Thoracic Surgery (Cardiothoracic Vascular Surgery)
PROC: B2111ZZ Fluoroscopy of Multiple Coronary Arteries using Low Osmolar Contrast (ICD-10-PCS; 2017-07-21)
PROC: B2151ZZ Fluoroscopy of Left Heart using Low Osmolar Contrast (ICD-10-PCS; 2017-07-21)
PROC: 4A023N7 Measurement of Cardiac Sampling and Pressure, Left Heart, Percutaneous Approach (ICD-10-PCS; 2017-07-21)
PROC: 06BQ4ZZ Excision of Left Saphenous Vein, Percutaneous Endoscopic Approach (ICD-10-PCS; principal; 2017-07-22 12:45)
PROC: 5A1221Z Performance of Cardiac Output, Continuous (ICD-10-PCS; principal; 2017-07-22 12:45)
PROC: 02L70ZK Occlusion of Left Atrial Appendage, Open Approach (ICD-10-PCS; principal; 2017-07-22 12:45)
PROC: 021109W Bypass Coronary Artery, Two Arteries from Aorta with Autologous Venous Tissue, Open Approach (ICD-10-PCS; principal; 2017-07-22 12:45)
PROC: 02100Z8 Bypass Coronary Artery, One Artery from Right Internal Mammary, Open Approach (ICD-10-PCS; principal; 2017-07-22 12:45)
PROC: B245ZZ4 Ultrasonography of Left Heart, Transesophageal (ICD-10-PCS; principal; 2017-07-22 12:45)
PROC: 02100Z9 Bypass Coronary Artery, One Artery from Left Internal Mammary, Open Approach (ICD-10-PCS; principal; 2017-07-22 12:45)
DX: I25.10 Atherosclerotic heart disease of native coronary artery without angina pectoris (principal); I24.8 Other forms of acute ischemic heart disease; D62 Acute posthemorrhagic anemia; I48.0 Paroxysmal atrial fibrillation; E87.5 Hyperkalemia; Z82.49 Family history of ischemic heart disease and other diseases of the circulatory system
CPT/HCPCS: 82947-QW; 97116-GP; 97161-GP; 97165-GO; 97530-GP; 97535-GO; A9500; C1769; G8978-GP-CK; G8979-GP-CJ; G8987-GO-CK; G8988-GO-CI; G8989-GO-CI; J0153; J0282; J0360; J0461; J0690; J1265; J1644; J1815; J1885; J2001; J2150; J2250; J2260; J2310; J2370; J2405; J2440; J2704; J2720; J2765; J2930; J3010; J7060; P9041; Q9967

== ENCOUNTER → 2017-08-09 | Outpatient (CLI) | payer OTHER, BC | LOC: FIMAGING 12:33 | PROVIDERS: ATTEND Thoracic Surgery (Cardiothoracic Vascular Surgery) | DX: Z98.890 Other specified postprocedural states (principal); J98.4 Other disorders of lung; J90 Pleural effusion, not elsewhere classified; Z95.1 Presence of aortocoronary bypass graft ==

== ENCOUNTER → 2017-08-23 | Outpatient (CLI) | payer OTHER, BC | LOC: FIMAGING 10:37 | PROVIDERS: ATTEND Thoracic Surgery (Cardiothoracic Vascular Surgery) | DX: Z48.812 Encounter for surgical aftercare following surgery on the circulatory system (principal); Z95.1 Presence of aortocoronary bypass graft ==